=== PATIENT | female | born 1970 | race American Indian/Alaskan Native ===

== ENCOUNTER 2020-04-30 16:56 | Emergency (ER) | payer OTHER ==
[2020-04-30 17:51] LABS: Basophils % (Auto) 0.6 % (0.0-1.8); Eosinophils # (Auto) 0.1 K/mm3 (0.0-0.4); Eosinophils % (Auto) 1.3 % (0.0-4.3); Hematocrit 35.5 % (30.3-42.9); Lymphocytes # (Auto) 2.2 K/mm3 (1.2-5.4); Lymphocytes % (Auto) 36.7 % (13.4-35.0); Mean Corpuscular HGB Conc 31 % (30-34); Mean Corpuscular Volume 72 fl (79-97); Monocytes # (Auto) 0.5 K/mm3 (0.0-0.8); Monocytes % (Auto) 8.7 % (0.0-7.3); Platelet Count 173 K/mm3 (140-440); Red Blood Count 4.96 M/mm3 (3.65-5.03); Red Cell Distribution Width 14.1 % (13.2-15.2)
[2020-04-30 18:09] LABS: Alanine Aminotransferase 16 units/L (7-56); Albumin 4.3 g/dL (3.9-5); BUN/Creatinine Ratio 12; Blood Urea Nitrogen 12 mg/dL (7-17); Calcium 9.2 mg/dL (8.4-10.2); Hemolysis Index 3
[2020-05-01 01:59] VITALS: BP 162/89
== END 2020-05-01 02:45 | disposition home or self-care (01) ==
LOC: ED 16:56
DX: E11.65 Type 2 diabetes mellitus with hyperglycemia (principal); F41.9 Anxiety disorder, unspecified; I10 Essential (primary) hypertension; Z85.3 Personal history of malignant neoplasm of breast
CPT/HCPCS: 36415; 71046; 80053; 82805; 82962; 83735; 84443; 84484; 85025; 96361; 96374; 99284; J2060; J7030; J7120; 96360

== ENCOUNTER 2021-04-07 16:22 | Emergency (ER) | payer OTHER ==
[2021-04-07 16:56] VITALS: BP 202/101
[2021-04-07 17:29] LABS: Basophils # (Auto) 0.1 K/mm3 (0.0-0.1); Basophils % (Auto) 1.2 % (0.0-1.8); Eosinophils # (Auto) 0.1 K/mm3 (0.0-0.4); Eosinophils % (Auto) 0.8 % (0.0-4.3); Hematocrit 35.2 % (30.3-42.9); Hemoglobin 11.3 gm/dl (10.1-14.3); Lymphocytes # (Auto) 2.5 K/mm3 (1.2-5.4); Lymphocytes % (Auto) 33.6 % (13.4-35.0); Mean Corpuscular HGB Conc 32 % (30-34); Mean Corpuscular Volume 70 fl (79-97); Monocytes # (Auto) 0.5 K/mm3 (0.0-0.8); Monocytes % (Auto) 6.1 % (0.0-7.3); Platelet Count 178 K/mm3 (140-440); Red Blood Count 5.01 M/mm3 (3.65-5.03); Red Cell Distribution Width 14.7 % (13.2-15.2)
[2021-04-07 17:40] LABS: BUN/Creatinine Ratio 15; Blood Urea Nitrogen 12 mg/dL (7-17); Calcium 9.1 mg/dL (8.4-10.2); Hemolysis Index 97
[2021-04-07 17:47] LABS: Bacteria,Urine 3+ /HPF (Negative); Bilirubin,Urine NEG (Negative); Blood,Urine NEG (Negative); Color,Urine Yellow (Yellow); Protein,Urine <15 mg/dL mg/dL (Negative); Urobilinogen,Urine < 2.0 mg/dL (<2.0)
--- NOTE | 2021-04-07 18:21 | Emergency Department Report ---
ED General Adult HPI - General Chief complaint: Hyperglycemia Stated complaint: HYPERGLYCEMIA PUI?: No Source: patient Mode of arrival: Ambulatory Limitations: No Limitations - History of Present Illness Initial comments: 51-year-old female presents to the emergency room concern for elevated blood pressure and blood sugar. Patient states that when she had checked her blood pressure at home it was 182/102. She states her blood sugar was 370. Patient states that she checked her blood sugar after eating. Patient states that sometimes she has feelings that her heart is skipping beats. Patient does admit that she eats and lies down. She admits that she eats spicy foods and puts edwar in her drinks. She states she is a diabetic and takes her Metformin 1000 mg twice a day. Patient states that she takes her Exforge for her blood pressure. Patient denies any chest pain no shortness of breathing no fever no chills no abdominal pain. Patient does admit that she is very stressed out as she is a [employer]. Patient does have a primary care provider and is due for an appointment this month. -: This morning Location: abdomen Quality: burning Consistency: intermittent Improves with: none Associated Symptoms: denies: diaphoresis, fever/chills, headaches, nausea/vomiting, shortness of breath Treatments Prior to Arrival: none - Related Data Previous Rx's Medication Instructions Recorded Last Taken Type hydrOXYzine PAMOATE [Vistaril] 25 mg PO Q6HR PRN #30 capsule 05/01/20 Unknown Rx Allergies Allergy/AdvReac Type Severity Reaction Status Date / Time No Known Allergies Allergy Unverified 04/30/20 17:04 ED Review of Systems ROS: Stated complaint: HYPERGLYCEMIA Other details as noted in HPI Comment: All other systems reviewed and negative ED Past Medical Hx - Past Medical History Previous Medical History?: Yes Hx Hypertension: Yes Hx Diabetes: Yes Hx Psychiatric Treatment: Yes (Panic attacks) - Surgical History Past Surgical History?: Yes Hx Breast Surgery: Yes (2017 Breast cancer) - Social History Smoking Status: Never Smoker Substance Use Type: None - Medications Home Medications: Home Medications Medication Instructions Recorded Confirmed Last Taken Type hydrOXYzine PAMOATE [Vistaril] 25 mg PO Q6HR PRN #30 capsule 05/01/20 Unknown Rx ED Physical Exam - General Limitations: No Limitations General appearance: alert, in no apparent distress - Head Head exam: Present: atraumatic, normocephalic - Eye Eye exam: Present: normal appearance - ENT ENT exam: Present: mucous membranes moist - Neck Neck exam: Present: full ROM - Respiratory Respiratory exam: Present: normal lung sounds bilaterally. Absent: accessory muscle use - Cardiovascular Cardiovascular Exam: Present: regular rate, normal rhythm. Absent: systolic murmur, diastolic murmur, rubs, gallop - GI/Abdominal GI/Abdominal exam: Present: soft. Absent: distended, tenderness - Extremities Exam Extremities exam: Present: normal inspection, full ROM - Back Exam Back exam: Present: normal inspection - Neurological Exam Neurological exam: Present: alert, oriented X3, normal gait - Psychiatric Psychiatric exam: Present: normal affect, normal mood - Skin Skin exam: Present: warm, dry, intact, normal color. Absent: rash ED Course Vital Signs 04/07/21 16:53 Temperature 98.8 F Pulse Rate 79 Respiratory 15 Rate Blood Pressure 202/101 O2 Sat by Pulse 100 Oximetry ED Medical Decision Making - Lab Data Result diagrams: 04/07/21 17:08 04/07/21 17:08 - Medical Decision Making 51-year-old female presents to the emergency room concern for elevated blood pressure and blood sugar. Patient states that when she had checked her blood pressure at home it was 182/102. She states her blood sugar was 370. Patient states that she checked her blood sugar after eating. Patient states that sometimes she has feelings that her heart is skipping beats. Patient does admit that she eats and lies down. She admits that she eats spicy foods and puts edwar in her drinks. She states she is a diabetic and takes her Metformin 1000 mg twice a day. Patient states that she takes her Exforge for her blood pressure. Patient denies any chest pain no shortness of breathing no fever no chills no abdominal pain. Patient does admit that she is very stressed out as she is a [employer]. Patient does have a primary care provider and is due for an appointment this month. Labs are within normal limits. Blood sugar was 252. Blood pressure has improved from 202/102 to now 178/98. Patient denies any headaches or shortness of breath. Discussed with patient to continue with all her medications avoid lying down after eating avoid spicy acid foods. Follow-up with her primary care provider. Critical care attestation.: If time is entered above; I have spent that time in minutes in the direct care of this critically ill patient, excluding procedure time. ED Disposition Clinical Impression: Hypertension Qualifiers: Hypertension type: essential hypertension Qualified Code(s): I10 - Essential (primary) hypertension Diabetes type 1, uncontrolled Qualifiers: Glycemic state: with hyperglycemia Qualified Code(s): E10.65 - Type 1 diabetes mellitus with hyperglycemia Disposition: TO HOME OR SELFCARE Is pt being admited?: No Does the pt Need Aspirin: No Condition: Stable Instructions: Hypertension (ED), Diabetes Mellitus Type 2 in Adults (ED), Hypertension, Adult, [id number], Hyperglycemia Additional Instructions: Labs are stable blood pressure has improved. Continue with your medication and follow-up with your primary care provider in the next 3 to 5 days. Please avoid eating and lying down. Please watch her acid foods. Increase your water intake. Referrals: JOSE E GREEN PA [Referring] - 3-5 Days
== END 2021-04-07 18:40 | disposition home or self-care (01) ==
LOC: ED 16:22
DX: E10.65 Type 1 diabetes mellitus with hyperglycemia (principal); I10 Essential (primary) hypertension; Z98.890 Other specified postprocedural states; Z79.899 Other long term (current) drug therapy
CPT/HCPCS: 36415; 80048; 81001; 82805; 82962; 85025